=== PATIENT | male | born 1960 | race Caucasian/White ===

== ENCOUNTER 2020-03-03 19:28 | Emergency (ER) | payer OTHER, MEDICARE, MEDICAID ==
--- NOTE | 2020-03-03 20:07 | ER Document Report ---
ED Medical Screen (RME) - General Stated Complaint: NOSE BLEED Time Seen by Provider: 03/03/20 20:00 Primary Care Provider: ESTRELLITA JOHNSON MD [Primary Care Provider] - Follow up as needed Mode of Arrival: Ambulatory Information source: Patient Notes: HPI; he 9-year-old male past medical history significant for hypertension with multiple cardiac stents presents to the emergency room with a nosebleed that started approximately 4-1/2 hours ago. States he was sitting in his truck when he felt his nose running and realized it was blood. Tried pressure into things had back to stop the bleeding without relief. States he does take Plavix also takes BC powder twice a day for chronic pain. Denies any trauma or injury to his nose. No history of previous nosebleeds. PE: Awake alert oriented x3, mild distress noted. Unable to assess epistaxis in triage. Lungs clear to auscultation without rales rhonchi wheezes. Heart: Regular rate and rhythm without murmurs rubs or gallops. I have greeted and performed a rapid initial assessment of this patient. A comprehensive ED assessment and evaluation of the patient, analysis of test results and completion of medical decision making process will be conducted by an additional ED providers. TRAVEL OUTSIDE OF THE [place] IN LAST 30 DAYS: No - Related Data Allergies/Adverse Reactions: gabapentin Allergy (Verified 03/03/20 20:01) steroids Allergy (Uncoded 03/03/20 20:01) Past Medical History - Past Medical History Cardiac Medical History: Reports: Hx Hypertension Pulmonary Medical History: Reports: Hx Pneumonia - Immunizations Hx Diphtheria, Pertussis, Tetanus Vaccination: Yes - 2010 Physical Exam - Vital signs Vitals: Temp Pulse Resp BP Pulse Ox 97.9 F 78 16 144/83 H 94 03/03/20 19:34 03/03/20 19:34 03/03/20 19:34 03/03/20 19:34 03/03/20 19:34 Course - Vital Signs Vital signs: Temp Pulse Resp BP Pulse Ox 97.9 F 78 16 144/83 H 94 03/03/20 19:34 03/03/20 19:34 03/03/20 19:34 03/03/20 19:34 03/03/20 19:34 Doctor's Discharge - Discharge Referrals: ESTRELLITA JOHNSON MD [Primary Care Provider] - Follow up as needed
[2020-03-03 20:35] LABS: ABSOLUTE EOSINOPHILS # (AUTO) 0.2 10^3/uL (0.0-0.6); ABSOLUTE LYMPHOCYTES (AUTO) 2.5 10^3/uL (0.5-4.7); ABSOLUTE MONOCYTES (AUTO) 0.7 10^3/uL (0.1-1.4); ABSOLUTE NEUT (AUTO) 6.7 10^3/uL (1.7-8.2); BASOPHILS % (AUTO) 0.4 % (0-2); EOSINOPHILS % (AUTO) 2.3 % (0-6); HEMATOCRIT 41.1 % (37.9-51.0); HEMOGLOBIN 14.5 g/dL (13.5-17.0); LYMPHOCYTES % (AUTO) 24.3 % (13-45); MEAN CORPUSCULAR HEMOGLOBIN 31.7 pg (27.0-33.4); MEAN CORPUSCULAR HGB CONC 35.2 g/dL (32.0-36.0); MEAN CORPUSCULAR VOLUME 90 fl (80-97); MONOCYTES % (AUTO) 7.3 % (3-13); PLATELET COUNT 217 10^3/uL (150-450); RED BLOOD COUNT 4.57 10^6/uL (4.35-5.55); RED CELL DISTRIBUTION WIDTH 14.1 % (11.5-14.0); SEGMENTED NEUTROPHILS % (AUTO) 65.7 % (42-78); TOTAL CELLS COUNTED % (AUTO) 100 %; WHITE BLOOD COUNT 10.1 10^3/uL (4.0-10.5)
[2020-03-03 20:44] LABS: INTERNATIONAL RATION (INR) 0.97; PROTHROMBIN TIME 12.9 SEC (11.4-15.4)
[2020-03-03 20:57] LABS: ALBUMIN 4.5 g/dL (3.5-5.0); ALKALINE PHOSPHATASE 110 U/L (38-126); ANION GAP 8 (5-19); ASPARTATE AMINO TRANSFERASE 25 U/L (17-59); BILIRUBIN,TOTAL 0.5 mg/dL (0.2-1.3); BLOOD UREA NITROGEN 35 mg/dL (7-20); CALCIUM 9.6 mg/dL (8.4-10.2); CARBON DIOXIDE 26 mmol/L (22-30); CHLORIDE 107 mmol/L (98-107); GLUCOSE 97 mg/dL (75-110); POTASSIUM 3.9 mmol/L (3.6-5.0); TOTAL PROTEIN 7.4 g/dL (6.3-8.2)
--- NOTE | 2020-03-03 22:04 | ER Document Report ---
ED General - General Chief Complaint: Nose Bleed Stated Complaint: NOSE BLEED Time Seen by Provider: 03/03/20 20:00 Primary Care Provider: ESTRELLITA JOHNSON MD [Primary Care Provider] - Follow up as needed Mode of Arrival: Ambulatory TRAVEL OUTSIDE OF THE [place] IN LAST 30 DAYS: No - HPI Notes: Patient is a 59-year-old male who presents to the emergency department for evaluation of a nosebleed. He states that started about 3 PM. He applied direct pressure, went to an urgent care, was sent here. He is on Plavix. He denies any trauma to the area. He states he has some soreness, he believes it is likely from squeezing so much. He does not have frequent nosebleeds. He is a smoker. - Related Data Allergies/Adverse Reactions: gabapentin Allergy (Verified 03/03/20 20:01) steroids Allergy (Uncoded 03/03/20 20:01) Past Medical History - General Information source: Patient - Social History Smoking Status: Current Every Day Smoker Frequency of alcohol use: None Drug Abuse: None Family History: Reviewed & Not Pertinent, Other Patient has homicidal ideation: No - Past Medical History Cardiac Medical History: Reports: Hx Hypertension Pulmonary Medical History: Reports: Hx Pneumonia - Immunizations Hx Diphtheria, Pertussis, Tetanus Vaccination: Yes - 2010 Review of Systems - Review of Systems EENT: See HPI -: Yes All other systems reviewed and negative Physical Exam - Vital signs Vitals: Temp Pulse Resp BP Pulse Ox 97.9 F 78 16 144/83 H 94 03/03/20 19:34 03/03/20 19:34 03/03/20 19:34 03/03/20 19:34 03/03/20 19:34 - Notes Notes: This is a 59-year-old male appears his stated age, no acute distress. Has normocephalic and atraumatic, pupils are equal round, reactive to light. Patient has a large blood clot noted in the anterior right nostril, small amount of blood seeping around it. Noted blood in the left nostril, no active bleeding. Oral mucosa is moist. Mild blood in the posterior pharynx. Heart regular rate and rhythm, lungs encrustation bilaterally. Abdomen soft, nontender, active bowel sounds. Skin is warm and dry. Patient is awake and alert, cooperative with examiner. Extremities without cyanosis or clubbing. Course - Re-evaluation Re-evalutation: 03/03/20 22:03 Patient presents to the emergency department for evaluation. Despite direct pressure, epistaxis continued. I did evaluate the nose and was unable to find a clear source of bleeding, but it did seem to be anterior. It was not pulsatile. It seemed to be only from the right nare. Decision was made to proceed with nasal packing. Patient tolerated this well. Please see separate procedure note. We will continue to monitor for hemostasis. Blood work is unremarkable, patient is stable at this time. 03/03/20 22:54 Hemostasis has been achieved. Patient is stable. We will send him home with epistaxis instructions, follow-up with primary care in 2 to 3 days. Return to the ED with worsening. - Vital Signs Vital signs: Temp Pulse Resp BP Pulse Ox 97.9 F 78 16 144/83 H 94 03/03/20 20:01 03/03/20 19:34 03/03/20 19:34 03/03/20 19:34 03/03/20 19:34 - Laboratory Result Diagrams: 03/03/20 20:20 03/03/20 20:20 Laboratory results interpreted by me: 03/03/20 03/03/20 20:20 20:20 RDW 14.1 H BUN 35 H Procedures - Nosebleed Procedure Right Time completed: 21:51 Location: Anterior Supplies used: Rhinorocket Discharge - Discharge Clinical Impression: Epistaxis not due to trauma Condition: Stable Disposition: HOME, SELF-CARE Instructions: Nosebleed Instructions ([facility]) Additional Instructions: Try to avoid manipulating, rubbing, blowing the nose. Leave Rhino Rocket in place for 2 to 3 days, follow-up with primary care or ENT for removal. He develop worsening or new concerning symptoms of any sort, please return immediately to the emergency department for reevaluation. Referrals: ESTRELLITA JOHNSON MD [Primary Care Provider] - Follow up as needed
[2020-03-03 23:06] VITALS: BP 161/98
== END 2020-03-03 23:06 | disposition home or self-care (01) ==
LOC: ER 19:28
DX: R04.0 Epistaxis (principal); F17.200 Nicotine dependence, unspecified, uncomplicated; I10 Essential (primary) hypertension; G89.29 Other chronic pain; Z79.899 Other long term (current) drug therapy; Z79.02 Long term (current) use of antithrombotics/antiplatelets; Z95.5 Presence of coronary angioplasty implant and graft; Z88.6 Allergy status to analgesic agent; Z88.8 Allergy status to other drugs, medicaments and biological substances
CPT/HCPCS: 36415; 80053; 85025; 85610; 99283